=== PATIENT | female | born 1940 | race Caucasian/White ===

== ENCOUNTER → 2021-12-30 | Outpatient (CLI) | payer MEDICARE ==
[~2021-12-30] MED LIST: ACCUPRIL; CIPR500 PO; ESTRACE; HYDACE5 PO; META400 PO; NAPR500 PO; OXYACE5T PO; PROM25 PO
== END ==
LOC: LAB 08:16 → LAB SHORT 08:16
DX: N39.0 Urinary tract infection, site not specified (principal)
CPT/HCPCS: 87077; 87086; 87186

== ENCOUNTER → 2022-02-20 | Outpatient (CLI) | payer MEDICARE | END | disposition home or self-care (01) | LOC: LAB SHORT 14:07 → LAB 14:07 | DX: N39.0 Urinary tract infection, site not specified (principal) | CPT/HCPCS: 87077; 87086; 87186 ==